=== PATIENT | female | born 1980 ===

== ENCOUNTER 2019-04-06 13:59 | Emergency (ER) | payer OTHER ==
[2019-04-06 16:09] VITALS: BP 160/109
--- NOTE | 2019-04-06 16:13 | UC ---
Lower Extremity/Ankle HPI - HPI Summary HPI Summary: 39 yo female presents with b/l ankle injury. She tells me that yesterday she was walking out of a building and didn't notice there was a small step down. She stepped forward and inverted both of her ankles (left > right). Since that time has had pain and swelling to her left ankle. Has been resting and icing with little relief. Nothing OTC for symptoms. She is ambulatory without assistance. Pain is worse with weight bearing. Denies numbness or tingling. Noted today her BP is elevated. She denies headache, dizziness, SOB, chest pain , n/v. She states did not take her BP medication this morning. - History of Current Complaint Chief Complaint: UCLowerExtremity Stated Complaint: LEG INJURY Time Seen by Provider: 04/06/19 15:42 Hx Obtained From: Patient Hx Last Menstrual Period: 03/13/19 Onset/Duration: Sudden Onset Severity Initially: Mild Severity Currently: Mild Pain Intensity: 4 Pain Scale Used: 0-10 Numeric - Allergies/Home Medications Allergies/Adverse Reactions: Allergies Allergy/AdvReac Type Severity Reaction Status Date / Time bupropion [From Wellbutrin] Allergy Itching Verified 04/06/19 16:09 fexofenadine [From Gloria-D] Allergy Itching Verified 04/06/19 16:09 pseudoephedrine Allergy Itching Verified 04/06/19 16:09 [From Gloria-D] sertraline [From Zoloft] Allergy Itching Verified 04/06/19 16:09 Home Medications: Home Medications Dextroamphetamine/Amphetamine [Adderall 20 mg Tablet] 1 tab PO DAILY 04/06/19 [ History Confirmed 04/06/19] Fluoxetine (Nf) Cap [Fluoxetine HCl] 20 mg PO DAILY 04/06/19 [History Confirmed 04/06/19] Ibuprofen 800 mg PO ONCE PRN 04/06/19 [History Confirmed 04/06/19] amLODIPine TAB* [Norvasc 5 mg TAB*] 10 mg PO DAILY 04/06/19 [History Confirmed 04/06/19] PMH/Surg Hx/FS Hx/Imm Hx Cardiovascular History: Hypertension Psychological History: Anxiety, Depression - Surgical History Surgical History: Yes Surgery Procedure, Year, and Place: breast reduction. cholecystectomy. tonsils - Family History Known Family History: Positive: None - Social History Lives: With Family Alcohol Use: Occasionally Substance Use Type: None Smoking Status (MU): Never Smoked Tobacco Review of Systems All Other Systems Reviewed And Are Negative: No Constitutional: Positive: Negative Skin: Positive: Negative Respiratory: Positive: Negative Cardiovascular: Positive: Negative Neurovascular: Positive: Negative Musculoskeletal: Positive: Other: - B/l ankle pain left > right Neurological/Mental Status: Positive: Negative Psychological: Positive: Negative Physical Exam - Summary Physical Exam Summary: GENERAL: NAD. WDWN. No pain distress. SKIN: No rashes, sores, lesions, or open wounds. CHEST: No accessory muscle use. Breathing comfortably and in no distress. CV: Pulses intact PT and DP. Cap refill <2seconds MSK: RIGHT ANKLE: FROM. Slight TTP overlying ATFL. Strength 5/5. No edema or obvious bony deformities. Negative talar tilt. No increased laxity. Negative Steen test. LEFT ANKLE: FROM. Moderate TTP overlying ATFL with mild edema. Strength 5/5. No obvious bony deformities. Negative talar tilt. No increased laxity. Negative Steen test. B/L feet nttp no 5th MT ttp NEURO: Alert. Sensations intact and symmetric B/L LEs PSYCH: Age appropriate behavior. Triage Information Reviewed: Yes Vital Signs: Initial Vital Signs Temp 97.2 F 04/06/19 16:04 Pulse 76 04/06/19 16:04 Resp 18 04/06/19 16:04 BP 160/109 04/06/19 16:04 Pulse Ox 100 04/06/19 16:04 Vital Signs Reviewed: Yes Diagnostics - Radiology B/L ankles Radiology Interpretation Completed By: Radiologist Summary of Radiographic Findings: FINDINGS: The soft tissues are unremarkable. The bone mineralization is within normal limits. No fracture is identified. Small calcaneal enthesophytes are present. Anatomic alignment is maintained. The joint spaces are preserved. IMPRESSION: No fracture identified. Lower Extremity Course/Dx - Course Course Of Treatment: XR as above. Pt placed in cam boot for her left ankle and provided with crutches. Advised to RICE and f/u with Orthopedics if symptoms do not improve. Regarding her elevated BP -- she is having no symptoms at this time. Advised to take medication as directed and f/u with PCP for a BP check. If she develops any red flag symptoms to go to the ER immediately. - Differential Dx/Diagnosis Provider Diagnosis: Ankle sprain Discharge ED - Sign-Out/Discharge Documenting (check all that apply): Patient Departure All imaging exams completed and their final reports reviewed: Yes - Discharge Plan Condition: Stable Disposition: HOME Patient Education Materials: Ankle Sprain (ED) Referrals: Mar Celaya MD [Primary Care Provider] - Jose Cruz Cruz MD [Medical Doctor] - If Needed Additional Instructions: If you develop a fever, shortness of breath, chest pain, new or worsening symptoms - please call your PCP or go to the ED immediately. Your blood pressure was high at todays visit. Please see your primary provider within 4 weeks for recheck and re-evaluation. Rest, Ice, and elevate your ankle intermittently throughout the day to reduce pain and swelling Use the walking boot for comfort and support Use the crutches if needed. If your ankle has not improved within 5-7 days, please call Orthopedics at the number below to schedule an appointment for further evaluation - Billing Disposition and Condition Condition: STABLE Disposition: Home
== END 2019-04-06 17:15 | disposition home or self-care (01) ==
LOC: UCEAST 13:59
DX: S93.402A Sprain of unspecified ligament of left ankle, initial encounter (principal); I10 Essential (primary) hypertension; X50.9XXA Other and unspecified overexertion or strenuous movements or postures, initial encounter; Y92.9 Unspecified place or not applicable; Z88.8 Allergy status to other drugs, medicaments and biological substances; Z79.899 Other long term (current) drug therapy
CPT/HCPCS: 99213; G0463